=== PATIENT | female | born 1955 | race African-American/Black ===

== ENCOUNTER 2019-01-09 14:02 | Emergency (ER) | payer BC, OTHER ==
[2019-01-09 14:08] VITALS: BP 147/66; PULSE 80; TEMP 98.1; BMI 43.5
[2019-01-09] MEDS ORDERED: CYCLOBENZAPRINE HCL 5 MG TABLET PO ONE (14:45)
[2019-01-09] MEDS ORDERED: IBUPROFEN 400 MG TABLET (FP) PO ONE ×2 (14:45→14:48)
[2019-01-09] MEDS ORDERED: CYCLOBENZAPRINE HCL 10 MG TABLET (FP) ONE (14:49)
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
== END 2019-01-09 14:55 | disposition home or self-care (01) ==
LOC: FER 14:02
DX: S46.819A Strain of other muscles, fascia and tendons at shoulder and upper arm level, unspecified arm, initial encounter (principal); S06.0X0A Concussion without loss of consciousness, initial encounter; V43.52XA Car driver injured in collision with other type car in traffic accident, initial encounter; Y93.89 Activity, other specified; Y92.410 Unspecified street and highway as the place of occurrence of the external cause; I10 Essential (primary) hypertension; G43.909 Migraine, unspecified, not intractable, without status migrainosus
CPT/HCPCS: 99282-25

== ENCOUNTER 2021-11-28 04:21 | Day surgery (SDC) | payer OTHER, BC ==
[2021-11-27 09:49] VITALS: BMI 38.2
[2021-11-28] MEDS ORDERED: LIDOCAINE 1%/EPI 1:100000 (20 ML MULTI DOSE VIAL) ONE (07:24)
[2021-11-28] MEDS ORDERED: MIDAZOLAM HCL 2 MG/2 ML SINGLE DOSE VIAL ONE (07:27)
[2021-11-28] MEDS ORDERED: LIDOCAINE HCL/PF 2% SDV 5ML VIAL ONE (07:27)
[2021-11-28] MEDS ORDERED: PROPOFOL 20 ML ONE (07:27)
[2021-11-28] MEDS ORDERED: LIDOCAINE 1%/EPI 1:100000 (20 ML MULTI DOSE VIAL) IJ ONE ×3 (07:37→08:19)
[2021-11-28] MEDS ORDERED: KETAMINE HCL 200 MG/20 ML VIAL ONE (08:10)
[2021-11-28] MEDS ORDERED: GLYCOPYRROLATE 0.2 MG/1 ML VIAL ONE (08:10)
[2021-11-28] MEDS ORDERED: ONDANSETRON 4 MG/2 ML VIAL IVPUSH PRN (08:29)
[2021-11-28] MEDS ORDERED: oxyCODONE HCL 5 MG TABLET PO PRN (08:29)
[2021-11-28] MEDS ORDERED: LACTATED RINGERS SOLUTION 1,000 ML IV SCH (08:30)
[2021-11-28 10:13] VITALS: RESP 20; TEMP 98.4
[2021-11-28] MEDS ORDERED: ACETAMINOPHEN 325 MG TABLET (FP) ONE (10:38)
[2021-11-28] MEDS ORDERED: ACETAMINOPHEN 325 MG TABLET (FP) PO ONE (10:40)
[2021-11-28 12:28] VITALS: BP 140/60; PULSE 94
== END 2021-11-28 11:10 | disposition home or self-care (01) ==
LOC: JASU-SURG 04:21
PROVIDERS: ATTEND Surgery
PROC: 0JB80ZZ Excision of Abdomen Subcutaneous Tissue and Fascia, Open Approach (ICD-10-PCS; principal; 2021-11-28 08:00)
DX: L72.3 Sebaceous cyst (principal)
CPT/HCPCS: 88304-TC; 94760

== ENCOUNTER 2022-01-10 23:41 | Inpatient (IN) | payer OTHER, BC ==
[2022-01-10] MEDS ORDERED: ONDANSETRON 4 MG/2 ML VIAL IVPUSH ONE (23:47)
[2022-01-10] MEDS ORDERED: FAMOTIDINE 20 MG/50 ML IVPB 20 MG/50 ML MG IVPB ONE ×2 (23:47→23:54)
[2022-01-10] MEDS ORDERED: SODIUM CHLORIDE 1,000 ML IV STA (23:47)
[2022-01-10] MEDS ORDERED: ACETAMINOPHEN 1000 MG/100 ML BAG IVPB ONE (23:47)
[2022-01-10] MEDS ORDERED: ONDANSETRON 4 MG/2 ML VIAL ONE (23:54)
[2022-01-10] MEDS ORDERED: ACETAMINOPHEN INJECTION 100 ML IVPB ONE (23:54)
[2022-01-11 00:39] LABS: HEMATOCRIT 35.7 % (32.4-45.2); HEMOGLOBIN 11.9 GM/dL (10.7-15.3); MCH 27.2 pg (25.7-33.7); MCHC 33.3 g/dl (32.0-36.0); MEAN CELL VOLUME 81.5 fl (80-96); MEAN PLT VOLUME 8.5 fl (7.5-11.1); PLATELET COUNT 251 10^3/uL (134-434); RBC 4.38 M/mm3 (3.60-5.2); RDW 13.2 % (11.6-15.6); WHITE BLOOD COUNT 9.6 K/mm3 (4.0-10.0)
[2022-01-11 00:47] LABS: INR 1.09 (0.83-1.09); PROTHROMBIN TIME (PATIENT) 12.5 SEC (9.7-13.0)
[2022-01-11 01:00] LABS: CALCIUM 9.5 mg/dL (8.5-10.1)
[2022-01-11 01:01] LABS: ALBUMIN 3.7 g/dl (3.4-5.0); BLOOD UREA NITROGEN 19.6 mg/dL (7-18)
[2022-01-11 01:04] LABS: CREATININE 0.9 mg/dL (0.55-1.3)
[2022-01-11 01:05] LABS: TOT PROT 7.7 g/dl (6.4-8.2)
[2022-01-11 01:06] LABS: BILIRUBIN,TOTAL 0.3 mg/dL (0.2-1)
[2022-01-11] MEDS ORDERED: morphine CARPU-JECT 2 MG/1 ML DISP.SYRIN IVPUSH ONE ×2 (01:22→08:43)
[2022-01-11] MEDS ORDERED: morphine SULFATE 4 MG/ML VIAL ONE (01:28)
[2022-01-11 03:14] LABS: ANISOCYTOSIS 1+; MACROCYTOSIS 0
[2022-01-11 03:44] LABS: PH,URINE 7.5 (5.0-8.0); URINE APPEARANCE CLEAR; URINE BILIRUBIN NEGATIVE (NEGATIVE); URINE COLOR YELLOW; URINE GLUCOSE (UA) 1+ (NEGATIVE); URINE KETONE NEGATIVE (NEGATIVE); URINE LEUK ESTERASE NEGATIVE (NEGATIVE); URINE NITRITE NEGATIVE (NEGATIVE); URINE PROTEIN NEGATIVE (NEGATIVE)
[2022-01-11] MEDS ORDERED: SODIUM CHLORIDE 1,000 ML IV SCH (09:15)
[2022-01-11] MEDS ORDERED: ONDANSETRON 4 MG/2 ML VIAL IVPUSH PRN (11:27)
[2022-01-11] MEDS ORDERED: PIPERACILLIN/TAZOB 3.375 GM 3.375 GM in DEXTROSE 5%-WATER - 50 ML IVPB ONE (12:48)
[2022-01-11] MEDS ORDERED: POTASSIUM CHLORIDE 10 MEQ in DEXTROSE 5%-NORMAL SALINE 1,000 ML IVPB SCH (13:00)
[2022-01-11] MEDS: DEXTROSE 5%-0.45% SALINE 1,000 ML IV SCH (17:12)
[2022-01-11] MEDS ORDERED: CEFTRIAXONE 1 GM in DEXTROSE 5%-WATER - 50 ML IVPB ONE (21:18)
[2022-01-12] MEDS ORDERED: ALBUTEROL SO4 2 MG TABLET PO PRN (16:21)
[2022-01-12] MEDS: DEXTROSE 5%-0.45% SALINE 1,000 ML IV SCH (16:41)
[2022-01-13] MEDS ORDERED: LIDOCAINE HCL/PF (2%) 40 MG/2 ML VIAL ONE (09:22)
[2022-01-13] MEDS ORDERED: GLYCOPYRROLATE 0.2 MG/1 ML VIAL ONE (09:22)
[2022-01-13] MEDS ORDERED: ROCURONIUM BROMIDE 50 MG/5 ML SYRINGE ONE ×2 (09:22→11:11)
[2022-01-13] MEDS ORDERED: PROPOFOL 40 ML ONE (09:22)
[2022-01-13] MEDS ORDERED: MIDAZOLAM HCL 2 MG/2 ML SINGLE DOSE VIAL ONE (09:23)
[2022-01-13] MEDS ORDERED: KETAMINE HCL 200 MG/20 ML VIAL ONE (09:23)
[2022-01-13] MEDS ORDERED: BUPIVACAINE HCL/PF 0.5% (5MG/ML) 10 ML VIAL IJ ONE ×3 (09:33→09:55)
[2022-01-13] MEDS ORDERED: amLODIPine BESYLATE 10 MG TABLET (FP) PO SCH (10:00)
[2022-01-13] MEDS ORDERED: VALSARTAN 160 MG TABLET PO SCH (10:00)
[2022-01-13] MEDS ORDERED: FUROSEMIDE 20 MG TABLET (FP) PO SCH (10:00)
[2022-01-13] MEDS ORDERED: PATIENT'S OWN MEDICATION (NON-FORMULARY) (Amlodipine/Valsartan [Exforge 10-160 Mg Tablet] PO SCH (10:00)
[2022-01-13] MEDS ORDERED: PANTOPRAZOLE 40 MG TABLET PO SCH (10:00)
[2022-01-13] MEDS ORDERED: SUGAMMADEX SODIUM 200 MG/2 ML VIAL ONE (10:20)
[2022-01-13] MEDS ORDERED: ceFAZolin 2 GRAM PREMIX BAG IVPB ONE (10:24)
[2022-01-13] MEDS ORDERED: ACETAMINOPHEN INJECTION 100 ML IVPB ONE (10:46)
[2022-01-13] MEDS ORDERED: PROPOFOL 20 ML ONE (11:39)
[2022-01-13] MEDS ORDERED: DEXTROSE 5%-0.45% SALINE 1,000 ML IV SCH (12:19)
[2022-01-13] MEDS ORDERED: ONDANSETRON 4 MG/2 ML VIAL IVPUSH PRN (12:19)
[2022-01-13] MEDS ORDERED: ALBUTEROL SO4 2 MG TABLET PO PRN (12:19)
[2022-01-13] MEDS ORDERED: traMADol HCL 50 MG TABLET PO PRN (12:27)
[2022-01-13] MEDS: SODIUM CHLORIDE 1,000 ML IV SCH (13:55)
[2022-01-13] MEDS: KETOROLAC TROMETHAMINE 30 MG/1 ML VIAL IVPUSH PRN (15:01)
[2022-01-13 15:28] LABS: HEMATOCRIT 37.9 % (32.4-45.2); HEMOGLOBIN 12.5 GM/dL (10.7-15.3); MCH 26.7 pg (25.7-33.7); MCHC 32.9 g/dl (32.0-36.0); MEAN CELL VOLUME 81.3 fl (80-96); MEAN PLT VOLUME 7.7 fl (7.5-11.1); PLATELET COUNT 244 10^3/uL (134-434); RBC 4.66 M/mm3 (3.60-5.2); RDW 12.8 % (11.6-15.6); WHITE BLOOD COUNT 11.7 K/mm3 (4.0-10.0)
[2022-01-13 15:43] LABS: CALCIUM 8.9 mg/dL (8.5-10.1)
[2022-01-13 15:44] LABS: ALBUMIN 3.2 g/dl (3.4-5.0); BLOOD UREA NITROGEN 9.2 mg/dL (7-18); MAGNESIUM 2.3 mg/dL (1.8-2.4)
[2022-01-13 15:47] LABS: CREATININE 0.8 mg/dL (0.55-1.3); PHOSPHOROUS 3.6 mg/dL (2.5-4.9)
[2022-01-13 15:49] LABS: BILIRUBIN,TOTAL 0.5 mg/dL (0.2-1)
[2022-01-13 16:08] LABS: TOT PROT 7.2 g/dl (6.4-8.2)
[2022-01-13] MEDS ORDERED: morphine CARPU-JECT 2 MG/1 ML DISP.SYRIN IVPUSH ONE (16:30)
[2022-01-13] MEDS ORDERED: KETOROLAC TROMETHAMINE 30 MG/1 ML VIAL IVPUSH PRN (17:00)
[2022-01-13] MEDS ORDERED: VALSARTAN 160 MG TABLET PO ONE (17:42)
[2022-01-13] MEDS: ACETAMINOPHEN 1000 MG/100 ML BAG IVPB SCH ×2 (17:54→23:39)
[2022-01-13] MEDS: VALSARTAN 160 MG TABLET PO SCH (18:01)
[2022-01-13] MEDS: INSULIN SLIDING SCALE (NOVOLOG) 1 VIAL SQ SCH (21:49)
[2022-01-13] MEDS ORDERED: MUPIROCIN 2% TOPICAL OINTMENT FOR DECOLONIZATION NS SCH (22:00)
[2022-01-13] MEDS ORDERED: CHLORHEXIDINE GLUCONATE 4% CLEANSER FOR DECOLONIZATION TP SCH (22:00)
[2022-01-14] MEDS: SODIUM CHLORIDE 1,000 ML IV SCH (03:58)
[2022-01-14] MEDS: ACETAMINOPHEN 1000 MG/100 ML BAG IVPB SCH (05:42)
[2022-01-14] MEDS: INSULIN SLIDING SCALE (NOVOLOG) 1 VIAL SQ SCH (06:19)
[2022-01-14 08:20] LABS: HEMATOCRIT 32.8 % (32.4-45.2); HEMOGLOBIN 10.7 GM/dL (10.7-15.3); MCH 26.6 pg (25.7-33.7); MCHC 32.6 g/dl (32.0-36.0); MEAN CELL VOLUME 81.6 fl (80-96); PLATELET COUNT 256 10^3/uL (134-434); RBC 4.02 M/mm3 (3.60-5.2); RDW 12.9 % (11.6-15.6); WHITE BLOOD COUNT 6.7 K/mm3 (4.0-10.0)
[2022-01-14 08:43] LABS: CALCIUM 8.2 mg/dL (8.5-10.1)
[2022-01-14 08:44] LABS: MAGNESIUM 2.3 mg/dL (1.8-2.4)
[2022-01-14 08:47] LABS: ALBUMIN 2.7 g/dl (3.4-5.0); PHOSPHOROUS 4.3 mg/dL (2.5-4.9)
[2022-01-14 08:48] LABS: BILIRUBIN,TOTAL 0.7 mg/dL (0.2-1)
[2022-01-14 08:50] LABS: CREATININE 0.8 mg/dL (0.55-1.3)
[2022-01-14] MEDS ORDERED: ENOXAPARIN NA (PORCINE) 40 MG/0.4 ML DISP.SYRIN SQ SCH (10:00)
[2022-01-14] MEDS ORDERED: amLODIPine BESYLATE 10 MG TABLET (FP) PO SCH (10:00)
[2022-01-14] MEDS ORDERED: PANTOPRAZOLE 40 MG TABLET PO SCH (10:00)
[2022-01-14] MEDS ORDERED: FUROSEMIDE 20 MG TABLET (FP) PO SCH (10:00)
[2022-01-14 10:11] VITALS: TEMP 97.9
[2022-01-14] MEDS: VALSARTAN 160 MG TABLET PO SCH (11:08)
[2022-01-14] MEDS: KETOROLAC TROMETHAMINE 30 MG/1 ML VIAL IVPUSH PRN (11:21)
[2022-01-14 12:36] VITALS: BP 131/50; PULSE 50; RESP 21
[2022-01-14] MEDS ORDERED: ACETAMINOPHEN 1000 MG/100 ML BAG IVPB ONE (13:54)
[2022-01-14] MEDS ORDERED: ACETAMINOPHEN INJECTION 100 ML IVPB ONE (13:55)
== END 2022-01-14 16:30 | disposition home or self-care (01) | DRG 418 ==
LOC: FER 23:41 → FM/S 01-11 09:04 → J8W 01-11 14:17 → JICU 01-13 14:06
PROVIDERS: ADMIT Internal Medicine; ATTEND Internal Medicine Pulmonary Disease
PROC: 0FT44ZZ Resection of Gallbladder, Percutaneous Endoscopic Approach (ICD-10-PCS; principal; 2022-01-13 09:30)
DX: K80.00 Calculus of gallbladder with acute cholecystitis without obstruction (principal); J98.11 Atelectasis; Q44.6 Cystic disease of liver; N13.30 Unspecified hydronephrosis; I10 Essential (primary) hypertension; K76.89 Other specified diseases of liver; E11.9 Type 2 diabetes mellitus without complications; E66.9 Obesity, unspecified; Z68.38 Body mass index [BMI] 38.0-38.9, adult; G47.33 Obstructive sleep apnea (adult) (pediatric)
CPT/HCPCS: 0241U-QW; 36415; 74177-TC; 76705-TC; 76856-TC; 80053; 81003; 82962; 83036; 83690; 83735; 84100; 84484; 85025; 85027; 85610; 86850; 86900; 86901; 87086; 88304-TC; 93005; 94660; 94760; 97116-GP; 97162-GP; 99285-25; Q9967